=== PATIENT | female | born 1930 | race Caucasian/White ===

== ENCOUNTER 2019-12-14 23:31 | Inpatient (IN) | payer OTHER ==
[~2019-12-14] VITALS: Ht 167.6 cm; Wt 57.2 kg
[~2019-12-14 23:31] MED LIST: ELIQUIS2.5 MG PO; LIPITOR10 MG PO; MINOCYCLINE HC100 M2 PO; NORCO 5-325 TA1 EAC1 PO
--- NOTE | 2019-12-15 01:40 | NUR ---
PATIENT ADMITTED PER CART FROM [facility] BECAUSE SHE VOICED SI TO NURSING STAFF. WALKED WITH 1 PERSON TO BATHROOM AND HAD A BM. VOIDED WELL. THEN WALKED HER TO BED. HAS A STEADY GAIT. IS ALERT X 4. SKIN WARM AND DRY. RESP EVEN AND UNLABORED. ONLY HAS A SMALL BRUISE ON LEFT INNER THIGH. HAS A BACK AND HEADACHE RATING A #10. AMBULATES INDEPENDENT TO BATHROOM WITH WALKER WITH STEADY GAIT. STARTED ALL OF HER HS MEDS PER DR TRINH. SWOLLOWS WELL. DENIES ANY SI AT THIS TIME. "I TOLD THE NURSING STAFF THAT i WANTED TO DROWN MYSELF IN CLAY BEHIND MY HOUSE BECAUSE I WANTED A PAIN MEDICATION FOR HER BAD HEADACHE."NO OTHER SKIN ISSSUES.LUNGS CTA. NO COUGH NOTED. VS STABLE.EDUCATED PATIENT TO ROOM AND SURROUNDINGS.HOSPITALIST CALLED AND GAVE REPORT, AND DR TRAVIS LEFT ORDERS WITH RN. PATIENT FEELIG BETTER AFTER EATING CRACKERS AND JUICE. SHE WANTED TO GO TO SLEEP. WILL MONITOR CLOSELY. CONT PLAN OF CARE.
[2019-12-15 01:52] VITALS: BP 147/81
[2019-12-15 08:40] VITALS: BP 129/75
--- NOTE | 2019-12-15 18:11 | NUR ---
AAOX3 PLEASANT AND COOPERATIVE. DOES NOT VISIT WITH OTHERS. EATS MEALS IN DINNING ROOM THEN RETREATS TO ROOM. REQUESTS PAIN MED WHEN DUE. GOOD APPETITE FOR MEALS.
[2019-12-15 19:23] VITALS: BP 137/71
[2019-12-15 21:00] VITALS: BP 137/71
--- NOTE | 2019-12-16 03:53 | NUR ---
PATIENT HAS BEEN UP IN MAIN DINING ROOM UNTIL BEDTIME. SHE HAS BEEN CALM AND COOPERATIVE. SHE DID BECOME ANXIOUS IN THINKING THAT SHE WASN'T GOING TO BE ABLE TO SLEEP. I GAVE HER HER TRAZADONE AT HS AND SHE CAME OUT WITHIN 35 MINUTES ANXIOUS AND SAYING SHE WASN'T HAVING ANY LUCK FALLING TO SLEEP AND SHE ASKED FOR SOMETHING TO CALM HER SO SHE COULD SLEEP. HYDROXYZINE 25MG GIVEN TO HER AROUND 2250. PATIENT HAS BEEN SLEEPING SINCE THEN. SHE DID HAVE A LARGE BM BEFORE SHE WENT TO BED TONIGHT. SHE DENIES PAIN. SHE WITHOUT SI/HI/AVH. SHE STATES THAT SHE HAD AN OK DAY BUT IS REALLY JUST WANTING TO GO BACK TO HER HOME. ROUTINE ROUNDS BEING DONE TO ASSESS PATIENT'S STATUS AND SAFETY. BED IN LOW POSITON.
--- NOTE | 2019-12-16 04:28 | NUR ---
PATIENT HAS BEEN ASLEEP MOST OF SHIFT. SHE DID AWAKE FOR PHYSICAL ASSESSMENT AND TO TAKE HER HS MEDS. PATIENT CAME TO NURSES STATION TO ASK FOR HYDROCODONE FOR NECK AND BACK PAIN. IT WAS 6 HOURS FROM LAST DOSE. PATIENT WENT BACK TO BED. VSS. DENIES SI/HI/AVH. CONTINUING TO MONITOR.
[2019-12-16 09:05] VITALS: BP 142/72
--- NOTE | 2019-12-16 11:16 | NUR ---
Lying supine in bed without s/o distress. States she has a sharp BARRERA and sharp low back pain 10/10, requesting pain medication. Pain decreased to 4/10 with Hydrocodone. Alert and orientated X4. Denies SI/HI. Ambulates to dining room with walker with steady gait.
--- NOTE | 2019-12-16 14:48 | NUR ---
DIAMOND completed a SLUMS with pt who received a 10/ score. DIAMOND and Dr. Palacios spoke with Connie, pt's daughter and DPOA. gave a recommendation that pt enter into [facility]. Connie rejected that idea and would like pt to come home. However, she wants to come live with pt and have the HH that PT recommends for pt. DIAMOND sent a listing of HH providers to Connie's email of [email or web address]. Dr. Palacios completed an order for HH and said that pt is still okay to d/c tomorrow pending everything is in place for her. SW team will continue to follow pt during her stay on this unit.
[2019-12-16 21:10] VITALS: BP 110/52
--- NOTE | 2019-12-16 23:03 | H ---
[facility] [place] [address] HISTORY AND PHYSICAL Name: BLANCHE PETTIT Room #: 524A-A ADM IN M.R.#: [id number] Admission: 12/14/19 Attend Phys: Waylon Palacios DO Discharge: Date of : [birth year] Report #: [id number] THIS REPORT FOR: cc: Rebecca Lo MD, Ghazal A. MD Kerstein, Andrew H. DO ~ CC: Waylon Lo DATE OF SERVICE: 12/15/2019 INPATIENT PSYCHIATRIC EVALUATION The patient originated to [facility] Emergency Room. The patient is admitted now to the [facility] Unit at [facility]. REASON FOR ADMISSION: From the [facility] ED. HISTORY OF PRESENT ILLNESS: This is an 89-year-old female who presented to the [facility] due to headache, running out of her narcotic pain medication. Apparently, the patient takes hydrocodone every 4 hours for chronic pain. EMS was summoned and transported her. It sounds like her physician was trying to cut back on her frequency of opiate usage, but she continued to use it with the aforementioned frequency. The patient initially did not threaten suicide and then after about an hour in the ER, stated she wanted to end her life, this was repeated to the nurse. Therefore, she was referred for psychiatric admission. Other relevant history includes history of hyponatremia, nausea, vomiting, dehydration, pacemaker placement, narcotic dependence. SOCIAL HISTORY: Includes nonsmoker. No alcohol use, no illicit drug use. FAMILY HISTORY: Noncontributory. EKG in the ER showed a QTc of 550, QT 410. WI interval 167. It was a ventricular paced rhythm. REVIEW OF SYSTEMS: Today reports headache and back pain, sounds moderate in intensity. Denied chest pain, shortness of breath, nausea, vomiting, fever, diarrhea, chills, weakness, does use a walker. Otherwise, review of systems negative on a brief 10 point. LABORATORY DATA: Laboratories done in the last day included an ER visit. White count 7.7, H and H 16.2 and 46.9, platelet count 284. Coagulation was done in July, so I would not review that. Chemistries from [facility], [facility] [address], [address] [address] HISTORY AND PHYSICAL Name: PETTITBLANCHE W Room #: 524A-A [facility] IN [facility].#: [id number] Admission: 12/14/19 Attend Phys: Waylon Palacios DO Discharge: Date of : [birth year] Report #: [id number] potassium 3.7, chloride 99, bicarbonate 26, anion gap 11, BUN 7, creatinine 1.1, estimated GFR 47, glucose 128. Lactic acid 1.6, calcium 9.4, total bilirubin 0.3, AST 18, ALT 15, alkaline phosphatase 62. CK 92. Troponin less than 0.06. NT-proBNP of 1220, total protein 8.3, albumin 4.1. UDS was negative interestingly with the exception of opiates. Salicylates were negative at 2.8. No other serology done in the ER. PHYSICAL EXAMINATION: VITAL SIGNS: Temperature 36.6, pulse 85, respirations 17, BP 129/75, O2 sat 96%. MUSCULOSKELETAL: Gait not tested, but uses a walker. MENTAL STATUS EXAMINATION: This is a well-developed, age-appearing female. Attention intact. Concentration intact. She was oriented to month, day of the week, year, I believe, she got day 2. She did not know how many nickels were in a dollar, though. Thought process linear and goal directed. Thought content focused on the present. It looks like she was a little sleepy. No psychomotor agitation. No psychomotor retardation. Denied SI or HI. Denied hopelessness, helplessness. Denied auditory, visual, or tactile hallucinations. Denied homicidal intent or plan. Memory not formally tested at this time. dump worker will do the SLUMS. Insight limited. Judgment limited. Fund of knowledge at least average. ADDITIONAL SOCIAL HISTORY: Reports she has been x 12 years, lives alone. Denies cognitive concerns. I forgot to ask if she still drives. FORMULATION: An 89-year-old female seen this morning in her room, status post suicidal threat in the Emergency Room. DIAGNOSES: At this time, unspecified depression, opioid dependence. PLAN: Evaluate, stabilize, obtain collateral. MEDICATIONS: Currently, her medication regimen: Trazodone 50 mg p.o. at bedtime, atorvastatin 10 mg p.o. at bedtime, Eliquis 2.5 mg p.o. b.i.d., I am guessing that is for venous thromboembolism or history of AFib, but we will need to clarify that. She is on hydrocodone bitartrate 5/325 q. 6 hours p.r.n. for pain level 6-10. Otherwise, house PRNs. Her daughter's name is Beronica. Daughter cell is [phone]. Plan to give her a call today. At this point, I will ask the OTs to work with her, as I do not think I have consulted them her PT, so we will do a PT consult for gait and endurance and strength and we will do OT consult with PAM to make sure she is still good to be on her own. ESTIMATED LENGTH OF STAY: 3-5 days. [facility] [address] [place] [address] HISTORY AND PHYSICAL Name: BLANCHE PETTIT Room #: 524A-A ADM IN .R.#: [id number] Admission: 12/14/19 Attend Phys: Waylon Palacios DO Discharge: Date of : [birth year] Report #: [id number] STRENGTHS: She is insured, has family support. WEAKNESSES: Advancing age. Narcotic dependence. I am going to defer narcotic pain management to the hospitalist, Dr. Cutler's service. Time spent on interview, review of records, evaluation, coordination of care is at least 60 minutes. <ELECTRONICALLY SIGNED> By: Waylon Palacios DO 12/16/19 2303 [id number] 1333 Waylon Palacios DO /nt
[2019-12-16 23:48] VITALS: BP 110/52
--- NOTE | 2019-12-17 00:34 | NUR ---
Assumed care of patient this pm shift. Patient lying down in bed. Patient states that she is having pain and needs her pain pills. Patient very concerned about changing her current medications and feels like she could be in severe pain if she has to wean off of the hydrocodone. Patient is very cooperative with rn. Patient denies hi/si. Patient is clean and tidy. Patients assessment shows clear breath sounds, active bowel sounds, and s1 s2 heard with auscultation. We will continue to monitor patient.
[2019-12-17 08:03] VITALS: BP 119/51
--- NOTE | 2019-12-17 09:26 | NUR ---
DIAMOND D/C note SW contacted Connie who chose [facility], [facility] for HH providers. She also said 1500 is okay for discharge today. DIAMOND contacted [facility] and [facility] said they are out of network for pt but suggested [facility]. DIAMOND sent referrals to [facility], [facility], and [facility].
[2019-12-17 09:28] VITALS: BP 119/51
[2019-12-17] MEDS ORDERED: TRAZODONE HCL50 MG PO (13:58)
[2019-12-17] MEDS ORDERED: NORCO 5-325 TA1 EAC1 PO (13:58)
--- NOTE | 2019-12-17 14:10 | NUR ---
PATIENT NEEDS ENCOURAGEMENT TO GET OUT OF BED. C/O BACK AND LEG PAIN. POOR APPETITE. INFORMED OF DISCHARGE TODAY AT 1500. DISCHARGE PAPER WORK PROVIDED TO PATIENT INCLUDING PRESCRIPTIONS.
--- NOTE | 2019-12-18 11:45 | EKG ---
[facility] [place] [address] ELECTROCARDIOGRAM REPORT Name: BLANCHE PETTIT Room #: 52-A [facility] IN M.R.#: [id number] Admission: 12/14/19 Attend Phys: Waylon Palacios DO Discharge: 12/17/19 Date of : [birth year] Report #: [id number] THIS REPORT FOR: cc: Rebecca Lo MD, Ghazal A. MD Couchonnal, Luis F. MD ~ THIS REPORT FOR: //name// [facility] Test Date: 2019-12-16 Test Time: 15:11:29 Pat Name: BLANCHE PETTIT Department: Room: [facility] A Gender: F Toaster Operator: Delfina XIE : 1930 Requested By: Aditya Cutler Order Number: [id number] MD: Brenden Novak Measurements Intervals [place] Rate: 88 P: MA: QRS: -58 QRSD: 159 T: 119 QT: 427 QTc: 517 Interpretive Statements Afib/flutter and ventricular-paced rhythm No further analysis attempted due to paced rhythm Baseline wander in lead(s) II,III,aVF No previous ECG available for comparison Electronically Signed On 12-18-2019 11:43:50 CDT by Brenden Noavk [email or web address] <ELECTRONICALLY SIGNED> By: Brenden Novak MD 12/18/19 1143 151 [id number] Brenden Novak MD /EPI
--- NOTE | 2019-12-18 19:03 | D ---
[facility] [place] [address] DISCHARGE SUMMARY Name: BLANCHE PETTIT Room #: 524A-A [facility] IN M.R.#: [id number] Admission: 12/14/19 Attend Phys: Waylon Palacios DO Discharge: 12/17/19 Date of : [birth year] Report #: [id number] THIS REPORT FOR: cc: Rebecca Lo MD, Ghazal A. MD Kerstein, Andrew H. DO ~ THIS REPORT FOR: //name// CC: Waylon Lo DATE OF SERVICE: 12/17/2019 INPATIENT PSYCHIATRIC DISCHARGE SUMMARY ATTENDING PHYSICIAN: Waylon Palacios DO GLUE CLAMP OPERATOR: Aditya Cutler MD DISCHARGE DIAGNOSES: Unspecified depression, resolved. Opiate dependence at least moderate degree due to longstanding use, which I do believe the patient needs continued narcotic pain medication for. Medical comorbidities include hyperlipidemia and atrial fibrillation. DISCHARGE PLAN: Discharging to her home. Her daughter must stay with her, 24-hour assistance and supervision, medication management recommended. DIET: Regular diet. ACTIVITY LEVEL: As tolerated. DISCHARGE MEDICATIONS: Hydrocodone/acetaminophen 5/325 q. 4 p.r.n. for pain level 6-10, quantity #150 prescribed. Trazodone 50 mg p.o. at bedtime for sleep, quantity #30 prescribed. Apixaban 2.5 mg p.o. b.i.d. for anticoagulation. Continue atorvastatin 10 mg p.o. at bedtime for hyperlipidemia. Continue her neb. LABORATORY DATA: Done this admission. The patient had presented at [facility]. CBC: H and H 16.3 and 46.9, white count 7.7, platelet count 284. Coagulation: INR 1.1, PT 11.4 , aPTT 31.0. Chemistries: Sodium 136, potassium 3.7, chloride 99, bicarbonate 26, anion gap 11, BUN 7, creatinine 1.1, estimated GFR 47, glucose 128. Lactic acid was 1.6 on the . Calcium 9.4, total bilirubin 0.3, AST 18, ALT 15, alkaline phosphatase 62. CK 92. Troponin less than 0.06, NT-proBNP 1220, total protein 8.3, albumin 4.1. Urinalysis showed trace protein, 1+ blood, few white blood cells, few hyaline casts, few granular casts. UDS was negative except for urine opiate screen, which is [facility] [address] [place] [address] DISCHARGE SUMMARY Name: BLANCHE PETTIT Room #: 52-A [facility] IN [facility]#: [id number] Admission: 12/14/19 Attend Phys: Waylon Palacios, Discharge: 12/17/19 Date of : [birth year] Report #: [id number] positive. Salicylate less than 0.9. Serum alcohol less than 10. REASON FOR ADMISSION: Back from the [facility] ED by Dr. Miranda. The patient was brought by daughter for uncontrolled pain due to ran out of narcotics. She threatened to cut her throat/suicide twice while in the ED at [facility]. She thought this would get her prescirbed narcotics. She was referred for psychiatric admission. HOSPITAL COURSE: The patient was admitted to Geriatric Psychiatry Unit. It was clear she ran in the dispute with Dr. Paige, her PCP over the number of opiate pills she was taking and how frequently. The [facility] Evaluation of Living Skills examination was done and showed needed assistance in financial internship for transportation. SLUMS was low and done by the group social worker at the level of 10. 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 I conferred with Dr. Cutler, we agree at this juncture withdrawn and tapering off was not in the best practice for the patient. PHYSICAL EXAMINATION: VITAL SIGNS: On the day of discharge, temperature 36.9, pulse 85, respirations 16, BP 119/51. MUSCULOSKELETAL: Ambulates with walker. MENTAL STATUS EXAMINATION: This is a well-developed female appearing stated age. Attention intact. Concentration fair. Speech is normal rate, volume and tone. Thought process is linear and goal directed. Thought content focused on discharge. No psychomotor agitation. No psychomotor retardation. Mood and affect congruent and euthymic. Denied SI or HI. Memory not formally tested. Insight limited. Judgment limited. Fund of knowledge, no greater than average. PROGNOSIS: For this patient is guarded given her age of 89. The daughter was educated about the dangers of opiate overdose and the likelihood of msimanagement by patient if she was left to handle them. Daughter is to dispense Narcotic medication ot patient. <ELECTRONICALLY SIGNED> By: Waylon Palacios DO 12/18/191902 47 49 Waylon Palacios DO /nt
== END 2019-12-17 15:00 | disposition home or self-care (01) | DRG 881 ==
LOC: SBH
PROVIDERS: ADMIT Psychiatry & Neurology Psychiatry
DX: F32.9 Major depressive disorder, single episode, unspecified (principal); F01.50 Vascular dementia, unspecified severity, without behavioral disturbance, psychotic disturbance, mood disturbance, and anxiety; F11.20 Opioid dependence, uncomplicated; R45.851 Suicidal ideations; Z60.2 Problems related to living alone; G89.29 Other chronic pain; E78.5 Hyperlipidemia, unspecified; I48.91 Unspecified atrial fibrillation; Z95.0 Presence of cardiac pacemaker; Z79.899 Other long term (current) drug therapy; Z79.01 Long term (current) use of anticoagulants
CPT/HCPCS: 10880